=== PATIENT | female | born 1985 | race Caucasian/White ===

== ENCOUNTER 2016-07-08 22:20 | Emergency (ER) | payer OTHER ==
[2016-07-08 22:26] VITALS: BP 132/95; PULSE 96; TEMP 98.2; BMI 35.5
--- NOTE | 2016-07-08 22:34 | PDOC ---
History of Present Illness - History of Present Illness Initial Comments: 07/08/16 23:02 The patient is a 30 year old female, with a significant past medical history of preclampsia and cholecystectomy, who presents to the emergency department with worsening left lower abdominal pain today. 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 She denies chest pain, shortness of breath, headache and dizziness. She denies fever, chills, nausea, vomit, diarrhea and constipation. She denies dysuria, frequency, urgency and hematuria. Allergies: NKDA Past surgical history: cholecystectomy and Social history: former tobacco use (quit smoking last year) [employer] - Dr. Louise ([phone]) <Humaira Severino - Last Filed: 07/09/16 01:38> <Jaclyn Rankin - Last Filed: 07/09/16 18:49> - General Chief Complaint: Pain Stated Complaint: OVARIAN CYST Time Seen by Provider: 07/08/16 22:30 Past History <Humaira Severino - Last Filed: 07/09/16 01:38> - Past Medical History Other medical history: help syndrom - Surgical History Cholecystectomy: Yes - Immunization History Immunization Up to Date: Yes - Psycho/Social/Smoking Cessation Hx Suicidal Ideation: No Smoking History: Former smoker Have you smoked in the past 12 months: No If you are a former smoker, when did you quit?: 2016 Information on smoking cessation initiated: No Hx Alcohol Use: No Drug/Substance Use Hx: No <Jaclyn Rankin - Last Filed: 07/09/16 18:49> - Past Medical History Allergies/Adverse Reactions: Allergies Allergy/AdvReac Type Severity Reaction Status Date / Time No Known Allergies Allergy Verified 07/08/16 22:23 Home Medications: Ambulatory Orders NK [No Known Home Medication] 07/08/16 Review of Systems - Review of Systems Able to Perform ROS?: Yes Comments:: 07/08/16 23:02 CONSTITUTIONAL: Absent: fever, chills, diaphoresis, generalized weakness, malaise, loss of appetite HEENT: Absent: rhinorrhea, nasal congestion, throat pain, throat swelling, difficulty swallowing, mouth swelling, ear pain, eye pain, visual Changes CARDIOVASCULAR: Absent: chest pain, syncope, palpitations, irregular heart rate, lightheadedness , peripheral edema RESPIRATORY: Absent: cough, shortness of breath, dyspnea with exertion, orthopnea, wheezing, stridor, hemoptysis GASTROINTESTINAL: (+) Left lower abdominal pain, Absent: abdominal distension, nausea, vomiting, diarrhea, constipation, melena, hematochezia GENITOURINARY: Absent: dysuria, frequency, urgency, hesitancy, hematuria, flank pain, genital pain MUSCULOSKELETAL: Absent: myalgia, arthralgia, joint swelling SKIN: Absent: rash, itching, pallor HEMATOLOGIC/IMMUNOLOGIC: Absent: easy bleeding, easy bruising, lymphadenopathy, frequent infections ENDOCRINE: Absent: unexplained weight gain, unexplained weight loss, heat intolerance, cold intolerance NEUROLOGIC: Absent: headache, focal weakness or paresthesias, dizziness, unsteady gait, seizure, mental status changes, bladder or bowel incontinence PSYCHIATRIC: Absent: anxiety, depression, suicidal or homicidal ideation, hallucinations. <Humaira Severino - Last Filed: 07/09/16 01:38> *Physical Exam - Vital Signs Last Vital Signs Temp Pulse Resp BP Pulse Ox 98.2 F 96 H 20 132/95 97 07/08/16 22:23 07/08/16 22:23 07/08/16 22:23 07/08/16 22:23 07/08/16 22:23 - Physical Exam Comments: 07/08/16 23:03 GENERAL: Well developed, well nourished. Awake and alert. No acute distress. HEENT: Normocephalic, atraumatic. PERRLA, EOMI. No conjunctival pallor. Sclera are non- icteric. Moist mucous membranes. Oropharynx is clear. NECK: Supple. Full ROM. No JVD. Carotid pulses 2+ and symmetric, without bruits. No thyromegaly. No lymphadenopathy. CARDIOVASCULAR: Regular rate and rhythm. No murmurs, rubs, or gallops. Distal pulses are 2+ and symmetric. PULMONARY: No evidence of respiratory distress. Lungs clear to auscultation bilaterally. No wheezing, rales or rhonchi. ABDOMINAL: (+) left lower quadrant tenderness to palpation. Soft. Non-distended. No rebound or guarding. No organomegaly. Normoactive bowel sounds. MUSCULOSKELETAL Normal range of motion at all joints. No bony deformities or tenderness. No CVA tenderness. EXTREMITIES: No cyanosis. No clubbing. No edema. No calf tenderness. SKIN: Warm and dry. Normal capillary refill. No rashes. No jaundice. NEUROLOGICAL: Alert, awake, appropriate. Cranial nerves 2-12 intact. Normoreflexic in the upper and lower extremities. Normal speech. Toes are down-going bilaterally. Gait is normal without ataxia. PSYCHIATRIC: Cooperative. Good eye contact. Appropriate mood and affect. <Humaira Severino - Last Filed: 07/09/16 01:38> - Vital Signs Last Vital Signs Temp Pulse Resp BP Pulse Ox 98.2 F 96 H 20 132/95 97 07/08/16 22:23 07/08/16 22:23 07/08/16 22:23 07/08/16 22:23 07/08/16 22:23 <Jaclyn Rankin - Last Filed: 07/09/16 18:49> ED Treatment Course - LABORATORY CBC & Chemistry Diagram: 07/08/16 23:16 07/08/16 22:38 - RADIOLOGY Radiograph Interpretation: 07/09/16 01:38 EXAM: ULTRASOUND PELVIS, COMPLETE AND TRANSVAGINAL ULTRASOUND AND DUPLEX SCAN PELVIS, INCOMPLETE Impression: No ovarian torsion. Bilateral color flow with appropriate arterial waveforms. 4.0 cm cyst left ovary. No free fluid. Normal uterus. Endometrial stripe complex 4 mm thick. Bladder not well seen. Read by: Koki Barnhart M.D. 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, Dr Louise earlier today and told to come to ER to obtain an transvaginal ultrasound to r/o ruptured ovarian cyst -LMP is now -pt has c/o left groin pain -denies fever,chills,vomiting,diarrhea,dysuria -no rlq abd pain 07/09/16 00:18 <Jaclyn Rankin - Last Filed: 07/09/16 18:49> *DC/Admit/Observation/Transfer - Attestations Scribe Attestion: 07/08/16 23:04 Documentation prepared by Humaira Severino, acting as medical record transcriber for Jaclyn Rankin MD <Humaira Severino - Last Filed: 07/09/16 01:38> <Jaclyn Rankin - Last Filed: 07/09/16 18:49> Diagnosis at time of Disposition: Ovarian cyst Qualifiers: Laterality: left Qualified Code(s): N83.202 - Unspecified ovarian cyst, left side Abdominal pain Qualifiers: Abdominal location: left lower quadrant Qualified Code(s): R10.32 - Left lower quadrant pain - Discharge Dispostion Disposition: AGAINST MEDICAL ADVICE - Referrals Referrals: Roc Quiroz MD [Primary Care Provider] - - Patient Instructions Additional Instructions: Please follow up with your PMD within the next 24 hours and if there is any change otherwise in your symptoms, please return immediately to the ED.
[2016-07-08] MEDS ORDERED: IBUPROFEN 600 MG TABLET (FP) PO ONE ×2 (22:48→22:54)
[2016-07-09 00:12] LABS: BASOPHIL 0.7 % (0-2.0); EOSINOPHIL 1.2 % (0-4.5); MCH 28.1 pg (25.7-33.7); MCHC 33.3 g/dl (32.0-36.0); MEAN CELL VOLUME 84.6 fl (80-96); MEAN PLT VOLUME 9.7 fl (7.5-11.1); NEUTROPHILS 45.6 % (42.8-82.8); PLATELET COUNT 287 K/MM3 (134-434); RDW 13.5 % (11.6-15.6); WHITE BLOOD COUNT 8.2 K/mm3 (4.0-10.0)
[2016-07-09 00:27] LABS: ALBUMIN 3.7 g/dl (3.4-5.0); ANION GAP 11 (8-16); CALCIUM 9.3 mg/dL (8.5-10.1); CO2 25 mmol/L (21-32); COCKROFT - GAULT 180.2935; CREATININE 0.6 mg/dL (0.55-1.02); GLUCOSE,RANDOM 91 mg/dL (74-106); SGOT/AST 43 U/L (15-37); SGPT/ALT 55 U/L (12-78)
[2016-07-09 00:29] LABS: ALK PHOS 92 U/L (45-117); BILIRUBIN,TOTAL 0.3 mg/dL (0.2-1.0); TOT PROT 8.4 g/dl (6.4-8.2)
[2016-07-09] MEDS ORDERED: OXYCODONE/APAP 5/325MG COMBO TABLET PO ONE (00:50)
[2016-07-09] MEDS ORDERED: OXYCODONE/APAP 5/325MG COMBO TABLET ONE (00:55)
[2016-07-09 00:59] LABS: URINE APPEARANCE CLEAR; URINE BILIRUBIN NEGATIVE (NEGATIVE); URINE COLOR YELLOW; URINE GLUCOSE (UA) NEGATIVE (NEGATIVE); URINE KETONE NEGATIVE (NEGATIVE)
[2016-07-09 01:00] LABS: PH,URINE 5.5 (5.0-8.0); URINE LEUK ESTERASE NEGATIVE (NEGATIVE); URINE NITRITE NEGATIVE (NEGATIVE); URINE PROTEIN NEGATIVE (NEGATIVE); URINE UROBILINOGEN 0.2 E.U/dl E.U./dl (0.2-1.0)
[2016-07-09 01:16] LABS: URINE BACTERIA RARE /hpf (NONE SEEN); URINE BLOOD 2+ (NEGATIVE); URINE RBC 1 /hpf (0-3); URINE WBC 3 /hpf (3-5)
[2016-07-09 01:17] LABS: URINE MUCUS MANY
--- NOTE | 2016-07-09 02:40 | PDOC ---
History of Present Illness - General Chief Complaint: Pain Stated Complaint: OVARIAN CYST Time Seen by Provider: 07/08/16 22:30 Past History - Past Medical History Allergies/Adverse Reactions: Allergies Allergy/AdvReac Type Severity Reaction Status Date / Time No Known Allergies Allergy Verified 07/08/16 22:23 Home Medications: Ambulatory Orders NK [No Known Home Medication] 07/08/16 Other medical history: help syndrom - Surgical History Cholecystectomy: Yes - Immunization History Immunization Up to Date: Yes - Psycho/Social/Smoking Cessation Hx Suicidal Ideation: No Smoking History: Former smoker Have you smoked in the past 12 months: No If you are a former smoker, when did you quit?: 2016 Information on smoking cessation initiated: No Hx Alcohol Use: No Drug/Substance Use Hx: No *Physical Exam - Vital Signs Last Vital Signs Temp Pulse Resp BP Pulse Ox 98.2 F 96 H 20 132/95 97 07/08/16 22:23 07/08/16 22:23 07/08/16 22:23 07/08/16 22:23 07/08/16 22:23 ED Treatment Course - LABORATORY CBC & Chemistry Diagram: 07/08/16 23:16 07/08/16 22:38 - ADDITIONAL ORDERS Additional order review: Laboratory Results 07/08/16 07/08/16 07/08/16 22:38 22:38 00:05 Sodium 139 Potassium 4.1 Chloride 103 Carbon Dioxide 25 Anion Gap 11 BUN 11 Creatinine 0.6 Creat Clearance w eGFR > 60 Random Glucose 91 Calcium 9.3 Total Bilirubin 0.3 AST 43 H ALT 55 Alkaline Phosphatase 92 Total Protein 8.4 H Albumin 3.7 Beta HCG, Quant < 1.0 Urine Color Yellow Urine Appearance Clear Urine pH 5.5 Ur Specific Butler >= 1.030 Urine Protein Negative Urine Glucose (UA) Negative Urine Ketones Negative Urine Blood 2+ H Urine Nitrite Negative Urine Bilirubin Negative Urine Urobilinogen 0.2 e.u/dl Ur Leukocyte Esterase Negative Urine RBC 1 Urine WBC 3 Urine Bacteria Rare Urine Mucus Many Urine HCG, Qual 07/08/16 00:05 Sodium Potassium Chloride Carbon Dioxide Anion Gap BUN Creatinine Creat Clearance w eGFR Random Glucose Calcium Total Bilirubin AST ALT Alkaline Phosphatase Total Protein Albumin Beta HCG, Quant Urine Color Urine Appearance Urine pH Ur Specific Butler Urine Protein Urine Glucose (UA) Urine Ketones Urine Blood Urine Nitrite Urine Bilirubin Urine Urobilinogen Ur Leukocyte Esterase Urine RBC Urine WBC Urine Bacteria Urine Mucus Urine HCG, Qual Negative 07/08/16 23:16 RBC 4.74 MCV 84.6 MCHC 33.3 RDW 13.5 MPV 9.7 Neutrophils % 45.6 Lymphocytes % 46.8 H Monocytes % 5.7 Eosinophils % 1.2 Basophils % 0.7 - Medications Given in the ED: ED Medications Discontinued Medications Generic Name Dose Route Start Last Admin Trade Name Freq PRN Reason Stop Dose Admin Ibuprofen 600 mg 07/08/16 22:48 07/08/16 22:51 Motrin - PO 07/08/16 22:49 600 mg ONCE ONE Administration Oxycodone/Acetaminophen 1 combo 07/09/16 00:50 07/09/16 00:53 Percocet 5/325 - PO 07/09/16 00:51 1 combo ONCE ONE Administration *DC/Admit/Observation/Transfer Diagnosis at time of Disposition: Cyst of ovary Qualifiers: Laterality: left Qualified Code(s): N83.202 - Unspecified ovarian cyst, left side Abdominal pain Qualifiers: Abdominal location: left lower quadrant Qualified Code(s): R10.32 - Left lower quadrant pain - Discharge Dispostion Disposition: AGAINST MEDICAL ADVICE Condition at time of disposition: Good Admit: No Decision to Admit order Date/Time: 07/09/16 02:39 - Referrals Referrals: Roc Quiroz MD [Primary Care Provider] - - Patient Instructions Additional Instructions: Please follow up with your PMD within the next 24 hours and if there is any change otherwise in your symptoms, please return immediately to the ED. - Post Discharge Activity
== END 2016-07-09 02:46 | disposition left against medical advice (07) ==
LOC: JER 22:20
DX: N83.202 Unspecified ovarian cyst, left side (principal)
CPT/HCPCS: 36415; 76830-TC; 76856-TC; 80053; 81003; 81015; 84702; 84703; 85025; 99282-25